=== PATIENT | female | born 1990 | race African-American/Black ===

== ENCOUNTER 2017-06-09 03:21 | Emergency (ER) | payer MEDICAID, SELFPAY ==
[2017-06-09 03:23] VITALS: BP 136/78; PULSE 90; RESP 16; TEMP 36.9; O2SAT 100; BMI 37.8
[2017-06-09] MEDS: Acetaminophen 500 MG Tablet 1000 MG PO (03:58)
[2017-06-09 04:08] LABS: Bacteria 0 SEEN /hpf (None Seen); Mucous, Urine 0 SEEN /hpf (<or=2+); Red Blood Cells-Urine 0 SEEN /hpf (0-5)
[2017-06-09 04:11] LABS: Color, Urine Yellow (Yellow); Glucose, Dipstick Normal (Normal); Ketone-Dipstick Negative (Negative); Leukocyte Esterase-Dipstick 500 /ul (Negative); Nitrite-Dipstick Negative (Negative); Occult Blood-Urine 25 /ul (Negative); Protein-Dipstick Negative (Negative); Urine Bilirubin Dipstick Negative (Negative); Urine Clarity Sl. Cloudy (Clear); Urine Urobilinogen Normal (Normal)
[2017-06-09 04:18] LABS: Squamous Epithelial Cells - UA 0-5 SEEN /hpf (5-10); White Blood Cells 50-100 SEEN /hpf (0-5)
--- NOTE | 2017-06-09 05:00 | ED.DCSUM_ITS ---
- ER Visit Summary Date of Service: 06/09/17 Chief Complaint: Chills, back pain History of Present Illness: The patient is a 27 F 17 week gestation and presents sudden chills this afternoon. Nontraumatic cramping of her right flank region. Denies urinary symptoms. Mild myalgias. Transient nausea. No vomiting or diarrhea. Past med history of heart murmur per patient. She is followed by [facility]. Currently on prenatals. Denies alcohol, tobacco, or illicit drug use. Physical Examination: General: Alert and oriented ?3, no acute distress HEENT: Normocephalic, atraumatic. Moist mucosa membranes Neck: supple, nontender. Cardiovascular: Regular rate and rhythm, no murmurs Respiratory: Normal breath sounds, symmetric, no distress Abdomen: Soft, nontender, nondistended Back: No CVA tenderness, no rash. Extremities: Nontender, no edema, pulses intact ?4 Neuro: no focal neurological deficits. Test Results: UA: Leukocytes 500, WBCs 5200. Urine culture pending. Emergency Department Course and Treatment: Patient nontoxic. She is given Tylenol for symptoms of chills. heart tone 140. With her back pain I did obtain a UA noted signs of infection. Urine culture sent. Discussed with the patient with her and back pain with her UTI, discussed attaining labs for further evaluation give her a dose of IV antibiotics. However after nursing tried accessing IV with 2 separate nurse, patient became agitated, she did not want any further testing. Discussed the patient could be a possibility of pyelonephritis due to her flank pain. She is nontoxic currently. Risk were discussed with the patient. She understands. She states she will call her physician this morning. Discussed I did send for culture she will be started on Macrobid along with a 10 day course. She will see her physician For reevaluation later today. She return if any worsening symptoms. All questions were answered. Treatment Plan: [] Disposition: Discharge Impression: 1. UTI and 2. Flank pain 3. Second trimester This note was generated with [employer] software. It may contain incorrect words, spelling, and punctuation that were not noted in review of the chart prior to signing ED Disposition - Plan for ED Patient: Disposition: Home or Assisted Living Chief Complaint: General Illness Diagnosis: UTI in , Right flank pain Instructions: ED Kidney Infec Female Prescriptions: Nitrofurantoin Monohyd/M-Cryst [Macrobid 100 mg Capsule] 100 mg PO BID #20 capsule Referrals: Care Physician,No Primary [Primary Care Provider] - Additional Instructions: Urine infection on labs. Flank pain. Urine culture sent and is pending. We insisted that that you received lab work for further evaluation for possible kidney infection. He will be treated for concerns or kidney infection. See your doctor today. Return if any worsening symptoms. Take antibiotics as prescribed.
[2017-06-09] MEDS: Nitrofurantoin Macrocrystals 100 MG Capsule PO (05:09)
[2017-06-09 05:11] VITALS: BP 123/77; PULSE 72; RESP 15; O2SAT 98
== END 2017-06-09 05:12 | disposition home or self-care (01) ==
PROVIDERS: Emergency Provider Emergency Medicine
DX: O23.42 Unspecified infection of urinary tract in pregnancy, second trimester (principal); O26.892 Other specified pregnancy related conditions, second trimester; R10.9 Unspecified abdominal pain; Z3A.17 17 weeks gestation of pregnancy
CPT/HCPCS: 81001; 87086; 87088; 87186; 99283

== ENCOUNTER 2017-09-18 12:01 | Emergency (ER) | payer MEDICAID, SELFPAY ==
[2017-09-18 12:03] VITALS: BP 114/68; PULSE 91; RESP 16; TEMP 36.9; O2SAT 98; BMI 32.8
--- NOTE | 2017-09-18 12:25 | ED.RN ---
CALLED [facility]SELING CENTER TO HAVE THEM COME SEE PATIENT. OSTEOPATHIC PHYSICIAN STATED SHE WOULD LET THEM KNOW.
--- NOTE | 2017-09-18 12:27 | ED.DCSUM_ITS ---
- ER Visit Summary Date of Service: 09/18/17 Chief Complaint: Depressed and suicidal History of Present Illness: The patient is a 27 F 3 P2 Ab0 currently 7-1/2 months due November 15. Patient is currently under the care of Dr. Kita Chatman of [facility]. She also sees a counseling center. She is a history of depression. She states she has been depressed more recently the last 2 days she has had suicidal thoughts. She states she has not acted on them. Around 2 years ago she needs to be admitted due to depression. Physical Examination: Well-appearing young female. Vital signs are stable and afebrile. She does not look septic or toxic. She is in no acute distress. I do not smell alcohol in order I see any signs of a toxidrome. H EENT exam unremarkable neck nontender lungs clear to auscultation bilaterally. Heart regular rate and rhythm no murmur. Abdomen is soft nondistended normal bowel sounds. She does have a gravid nontender uterus consistent with her dates. She is moving all 4 extremities. I do not see any track jane. I do not see any wounds. There are no scars. Upper and lower extremities neurovascular intact with normal range of motion. Back is nontender. Neurologically she is awake alert without focal motor deficits. Test Results: ED mental health screening labs. Emergency Department Course and Treatment: Patient will undergo ED mental health evaluation and a crisis evaluation for final disposition. Treatment Plan: [] Disposition: [] Impression: Acute on chronic depression Suicidal ideation at 7 a half months This note was generated with [employer] dictation software. It may contain incorrect words, spelling, and punctuation that were not noted in review of the chart prior to signing ED Disposition - Plan for ED Patient: Chief Complaint: Suicidal Referrals: Care Physician,No Primary [Primary Care Provider] -
--- NOTE | 2017-09-18 12:29 | ED.RN ---
LATOYA CHENG CALLED STATING HE WAS IN THE HOSPITAL ON [facility] AND HAS NOT EVEN BEGAN SEEING THE PT. HE STATED HE DOES NOT KNOW HOW LONG IT WILL BE UNTIL HE WILL BE DOWN HERE.
[2017-09-18 12:47] LABS: Absolute Lymphocyte Count 2.18 X10^3/ul (0.83-4.51); Absolute Neutrophil Count 9.7 X10^3/uL (2.0-7.7); Basophil# 0.02 X10^3/uL; Basophil% 0.2 % (0-1); Eosinophil# 0.11 X10^3/uL; Eosinophils% 0.9 % (0-5); Hematocrit 38.3 % (37-47); Hemoglobin 12.8 g/dl (12.0-15.0); Lymphocyte # 2.18 X10^3/ul (4.0); Mean Corp Hgb Conc 33.4 g/gl (32-36); Mean Corpuscular Volume 89.9 fL (81-99); Mean Platelet Vol. 10.4 fl (6.2-12.0); Monocyte# 0.83 X10^3/uL; Monocyte% 6.5 % (0-10); Neutrophil # 9.69 X10^3/uL (2.7-7.7); Neutrophil % 75.2 % (47-70); Platelet Count 258 K/mm3 (150-450); RBC Distribution Width CV 13.4 % (11.6-14.6); RBC Distribution Width SD 43.8 fl (35.1-43.9); Red Blood Count 4.26 M/mm3 (4.2-5.4); White Blood Count 12.9 K/mm3 (4.4-11.0)
[2017-09-18 12:49] LABS: POSITIVE COUNT NO; POSITIVE DIFFERENTIAL NO; POSITIVE MORPHOLOGY NO
[2017-09-18 13:03] LABS: Amphetamine Urine VISTA NEGATIVE (<1000 ng/mL); Barbiturate Urine VISTA NEGATIVE (< 200 ng/mL); Benzodiazepine Urine VISTA NEGATIVE (< 200 ng/mL); Cocaine Urine VISTA NEGATIVE (< 300 ng/mL); Ecstacy Urine VISTA NEGATIVE (< 500 ng/mL); Methadone Urine VISTA NEGATIVE (< 300 ng/mL); PCP Urine VISTA NEGATIVE (< 25 ng/mL); THC Urine VISTA POSITIVE (< 50 ng/mL); Vista UDS pH Range 6
[2017-09-18 13:03] LABS: Anion Gap 8 (5-15); BUN 3 mg/dL (7-18); BUN/Creat Ratio 5.4 RATIO (10-20); Calcium,Total 8.7 mg/dL (8.5-10.1); Chloride 107 mmol/L (98-107); Creatinine, Serum 0.56 mg/dL (0.55-1.02); EST Glomerular Filtration Rate 136 mL/min (>60); Est Glom Filt Rate - Afr Amer 165 mL/min (>60); Estimated Creatinine Clearance 133.38 ml/min; Glucose 64 mg/dL (74-106); Potassium 3.6 mmol/L (3.5-5.1); Sodium Level 137 mmol/L (136-145)
[2017-09-18] MEDS: Acetaminophen 500 MG Tablet 1000 MG PO (15:05)
[2017-09-18 15:06] VITALS: RESP 17
--- NOTE | 2017-09-18 15:13 | NURSING ---
LATOYA, CRISIS, HERE FOR PATIENT
[2017-09-18 16:52] VITALS: BP 109/65; PULSE 85; RESP 18; O2SAT 99
[2017-09-18 18:27] VITALS: BP 118/70; PULSE 84; O2SAT 98
[2017-09-18 18:53] VITALS: BP 118/70; PULSE 84; RESP 18; O2SAT 96
== END 2017-09-18 18:59 | disposition short-term general hospital (02) ==
LOC: ED 14:02
PROVIDERS: Emergency Provider Emergency Medicine
DX: O99.340 Other mental disorders complicating pregnancy, unspecified trimester (principal); F32.9 Major depressive disorder, single episode, unspecified; R45.851 Suicidal ideations; O99.330 Smoking (tobacco) complicating pregnancy, unspecified trimester; F17.200 Nicotine dependence, unspecified, uncomplicated; Z3A.00 Weeks of gestation of pregnancy not specified
CPT/HCPCS: 36415; 80048; 80307; 80320; 85025; 99284; G0480

== ENCOUNTER → 2017-11-09 14:59 | Outpatient (CLI) | payer MEDICAID, SELFPAY ==
[2017-11-09 19:09] LABS: Group B Strep DNA By PCR POSITIVE (Negative); Probe Check PASS
[2017-11-13 07:06] LABS: HSV 1 IgG < 0.91
== END ==
PROVIDERS: Visit Provider Nurse Practitioner Women's Health
DX: O09.93 Supervision of high risk pregnancy, unspecified, third trimester (principal); O98.513 Other viral diseases complicating pregnancy, third trimester; B00.9 Herpesviral infection, unspecified; Z3A.00 Weeks of gestation of pregnancy not specified
CPT/HCPCS: 36415; 86695; 86696; 87653

== ENCOUNTER → 2017-11-10 11:06 | Outpatient (CLI) | payer MEDICAID, SELFPAY | PROVIDERS: Visit Provider Obstetrics & Gynecology | DX: O36.5990 Maternal care for other known or suspected poor fetal growth, unspecified trimester, not applicable or unspecified (principal); Z3A.00 Weeks of gestation of pregnancy not specified | CPT/HCPCS: 76816 ==

== ENCOUNTER 2017-11-13 07:00 | Outpatient (CLI) | payer MEDICAID, SELFPAY ==
[2017-11-13 08:20] VITALS: BMI 35.1
--- NOTE | 2017-11-13 13:35 | OB.TRI.NOTE ---
- Problem List (1) False labor Status: Acute History of Present Illness Date of Service: 11/13/17 Was patient seen by the physician?: Yes Reason For Visit: R/O LABOR Date of Service: 11/13/17 History of Present Illness: co ctx. 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 discussed at length risk of herpes lesions at time of labor and would recommend cs if active. her last outbreak was 6 weeks ago and her bloodwork is positive for an old infection, negative for acute. discussed low risk for herpes transmission then at this time, particiularly if she goes on antivirals until delivery. recommend continuing antivirals and then fu in office
== END 2017-11-13 13:03 | disposition home or self-care (01) ==
LOC: WPOUT 07:36 → WP 07:37
PROVIDERS: Visit Provider Obstetrics & Gynecology
DX: O47.9 False labor, unspecified (principal); O98.519 Other viral diseases complicating pregnancy, unspecified trimester; B00.9 Herpesviral infection, unspecified; O99.340 Other mental disorders complicating pregnancy, unspecified trimester; F43.10 Post-traumatic stress disorder, unspecified; Z3A.00 Weeks of gestation of pregnancy not specified
CPT/HCPCS: 59050; 99218; G0378

== ENCOUNTER 2017-11-16 21:30 | Inpatient (IN) | payer MEDICAID, SELFPAY ==
[2017-11-16 22:18] VITALS: BMI 35.7
[2017-11-16] MEDS: Lactated Ringers 1,000 ML 50 ML IV (22:30)
[2017-11-16 22:35] LABS: Hematocrit 36.3 % (37-47); Hemoglobin 12.1 g/dl (12.0-15.0); Mean Corp Hgb Conc 33.3 g/gl (32-36); Mean Corpuscular Hgb 30.2 pg (27.0-32.0); Mean Corpuscular Volume 90.5 fL (81-99); Mean Platelet Vol. 11.3 fl (6.2-12.0); Platelet Count 258 K/mm3 (150-450); RBC Distribution Width CV 14.1 % (11.6-14.6); RBC Distribution Width SD 46.3 fl (35.1-43.9); Red Blood Count 4.01 M/mm3 (4.2-5.4); White Blood Count 14.5 K/mm3 (4.4-11.0)
[2017-11-16 22:39] LABS: Scan Indicated on CBC? Y/N NO
[2017-11-17 00:19] LABS: Amphetamine Urine VISTA NEGATIVE (<1000 ng/mL); Barbiturate Urine VISTA NEGATIVE (< 200 ng/mL); Benzodiazepine Urine VISTA NEGATIVE (< 200 ng/mL); Cocaine Urine VISTA NEGATIVE (< 300 ng/mL); Ecstacy Urine VISTA NEGATIVE (< 500 ng/mL); Methadone Urine VISTA NEGATIVE (< 300 ng/mL); PCP Urine VISTA NEGATIVE (< 25 ng/mL); THC Urine VISTA POSITIVE (< 50 ng/mL); Vista UDS pH Range 6
--- NOTE | 2017-11-17 01:10 | PCM.HP.OB ---
- Problem List (1) Active labor at term Status: Acute (2) Positive GBS test Status: Acute (3) Supervision of high-risk Status: Acute Comment: KAREN [place]. EDC 11/15/18 Grav 3/2 Girl (4) HSV-2 (herpes simplex virus 2) infection Status: Chronic History Date of Admission: 11/16/17 Final FABY: 11/15/17 Gestational age: 40 Weeks and 2 Days History of this : This is a 27 year-old, at 40 weeks gestational age presents IAL 5 cm dilated. she denies any active herpes lesions and denies any prodromal symptoms. she is currently on valtrex. she denies any LOF and admits good fm, no vb. she received care by [facility] in the beginning of her and then transferred care to [facility]. she also received several appointments for care in [place] due to her working down there for a while. she had a herpes outbreak 6 weeks ago and bloodwork showed that she has a history of HSV infections. 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) B00.9 PTSD (post-traumatic stress disorder) (Acute) F43.10 Has medical marijuana card Surgical History: Surgical History (Last Updated 11/09/17 @ 14:14 by Patrizia Wilkinson) Hx of tooth extraction K08.409 Allergies No Known Allergies Allergy (Verified 11/16/17 22:39) Home Medications: Home Medications Pnv No.122/Iron/Folic Acid [ Multi Tablet] 1 ea PO DAILY 09/18/17 Citalopram [Celexa] 10 mg PO DAILY 11/16/17 Valacyclovir HCl [Valtrex] 1,000 mg PO BID 11/16/17 Smoking Status: Light Smoker (<10/day) Alcohol: None Substance Use Type: Marijuana Number of Fetus(es): 1 Heart Tracin-130 moderate variability reactive no decels TOCO Analysis: q 5-8 History Past Pregnancies: Past Pregnancies Delivery Date Name GA/Weeks Outcome Route Weight Infant Gender Labor Length Anesthesia Delivery Location Provider FOB Labs: Mom's Problem List Problem Status Onset Code Active labor at term Acute Mom's Labs & Results 08/11/16/17 11/16/17 22:10 22:10 23:35 WBC 14.5 H RBC 4.01 L Hgb 12.1 Hct 36.3 L MCV 90.5 MCH 30.2 MCHC 33.3 RDW 14.1 RDW Differential 46.3 H Plt Count 258 MPV 11.3 Urine Opiates Screen NEGATIVE Urine Methadone Screen NEGATIVE Ur Barbiturates Screen NEGATIVE Ur Phencyclidine Scrn NEGATIVE Ur Amphetamines Screen NEGATIVE U Methamphetamin-MDMA NEGATIVE U Benzodiazepines Scrn NEGATIVE Urine Cocaine Screen NEGATIVE U Cannabinoids Screen POSITIVE H Ur Drug Screen Comment Blood Type B POSITIVE Antibody Screen NEGATIVE Course Did the patient receive Yes care? Labs Blood Type: AB RH: POSITIVE RPR/VDRL/Syphilis Nonreactive Rubella status Immune HbSAg Negative Date Done: 05/01/17 Chlamydia Negative Gonorrhea Negative HIV/AIDS Non-Reactive Group B Strep: Positive Current Obstetrical History Gestational Diabetes No Incompetent Cervix No Infertility No IUGR No Macrosomia No Hypertension/Pre-eclampsia No Placenta Previa/Abruption No PTL/PROM No Uterine anomaly No Oligohydramnios No Polyhydramnios No Multiple gestation No Past Medical History Asthma No Diabetes No Hypertension No Heart disease No Mitral valve prolapse No Neurologic/Seizure disorder/ No Migraines Kidney disease No Liver disease No Varicosities No Clotting disorders/Hx of DVT No Thyroid Dysfunction No Other medical diseases Yes: heart murmur Psychiatric disorders Yes: depression Major trauma No Abnormal PAP smear No Sleep apnea No Mammogram in the last 2 years No Social History Marital Status: SINGLE Alleged father Broderick Nuno Smoking Yes: trying to quit; last smoked 3 weeks ago Smoking Status Light Smoker (<10/day) Substance Use Type Marijuana What date/time did you last used beginning october use any of the above? Expected Delivery Method: Spontaneous Vaginal Review of Systems Constitutional: Denies: Fever, Malaise Eyes: Denies: Blurred vision, Vision Change HEENT: Denies: Head Aches, Visual Changes Cardiovascular: Denies: Chest Pain, Palpitations Respiratory: Denies: Cough, Shortness of Breath, Wheezing Gastrointestinal: Denies: Abdominal Pain, Diarrhea, Nausea, Vomiting Genitourinary: Denies: Dysuria, Hematuria Musculoskeletal: Denies: Joint Pain, Muscle pain Skin: Denies: Lesions, Rash Neurological: Denies: Blurred vision, Focal weakness, Headaches Psychiatric: Denies: Anxiety, Depression Endocrine: Denies: Heat/ Cold Intolerance Hematologic/ Lymphatic: Denies: Easy Bruising, Easy Bleeding Physical Exam General: Alert, Cooperative, No apparent distress HEENT: Atraumatic, Normocephalic. Negative for: Thyromegaly, Lymphadenopathy Cardiovascular: Regular rate Lungs: Normal air movement Abdomen: Soft, Non Tender, Gravid Neurological: Deep Tendon Reflexes 2+/4 and Symmetrical, Neuro grossly intact. Negative for: Clonus BODY BUILDER: Normal external genitalia. Negative for: Vulvar lesions Estimated gestational size: Appropriate for gestational size Presentation: Cephalic Assessment/Plan All Active Problems (Last Reviewed 11/09/17 @ 14:13 by Patrizia Wilkinson) False labor (Acute) Active labor at term (Acute) Positive GBS test (Acute) Supervision of high-risk (Acute) PTSD (post-traumatic stress disorder) (Acute) This is a 27 year-old, , at 40 weeks gestational age presents IAL Patient presents IAL, plan expectant management for , pitocin/AROM PRN if needed. Pain management: plans minimal intervention GBS positive plan PCN. Management of any complications: marijuana use- tox screen sent and positive. social service technician consult I have reviewed the COUNTS INCLUDE 234 BEDS AT THE [facility] and made any clinically relevant updates.
[2017-11-17] MEDS: Lactated Ringers 1,000 ML 50 ML IV (01:30)
[2017-11-17] MEDS: Oxytocin 30 units/NS 500 ml 30 UNITS/500 ML IV.SOLN IV (04:22)
[2017-11-17] MEDS: fentaNYL-bupivacaine (epidural) 100 ML BAG EPIDURAL (05:59)
[2017-11-17] MEDS: Oxytocin 30 units/NS 500 ml 30 UNITS/500 ML IV.SOLN 334 UNITS IV (06:21)
--- NOTE | 2017-11-17 06:36 | PCM.OB.VAG ---
- Problem List (1) Active labor at term Status: Acute (2) Positive GBS test Status: Acute (3) Supervision of high-risk Status: Acute Comment: K[facility] [place]. EDC 11/15/18 Grav 3/2 Girl (4) HSV-2 (herpes simplex virus 2) infection Status: Chronic Vaginal Delivery Maternal Presentation: Active Labor 27-year-old at 40 weeks 1 day presents in active labor. Patient was examined due to a history of genital herpes and no active lesions were noted. Patient was on Valtrex the time of delivery. Amniotic Membrane Rupture Type: Artificial Amniotic Fluid Description: Clear Final FABY: 11/15/17 Gestational age: 40 Weeks and 2 Days Date of Procedure: 11/17/17 Pre-Operative Diagnosis: ial Post-Operative Diagnosis: ial Surgery/ Procedure Performed: Spontaneous Vaginal Delivery Type of Anesthesia: None Description of Procedure: Patient began pushing and delivered the head in the KARTIK presentation. The head was delivered atraumatically. The anterior and posterior shoulders delivered without complication followed by the rest of the and the was placed on the maternal abdomen. Delayed cord clamping was employed for approximately 60 seconds. Cord was clamped and cut and gentle traction was applied to the cord and the placenta delivered spontaneously immediately following it was noted to be intact with three-vessel cord. The perineum and vagina were inspected and noted to have no laceration. EBL was 100 cc. Patient and infant tolerated delivery well. Presentation: KARTIK Placental Delivery Description: Spontaneous Placenta Disposition: [facility] Cord Entanglement: None Estimated Blood Loss: 100 A gender: Female (1 minute): 8 (5 minute): 9 Episiotomy Description: None Laceration: None Medications given after delivery: IV Pitocin Complications: None
[2017-11-17] MEDS: Oxytocin 30 units/NS 500 ml 30 UNITS/500 ML IV.SOLN 167 UNITS IV (06:51)
[2017-11-17] MEDS: Citalopram 10 MG Tablet PO (11:34)
[2017-11-17] MEDS: Prenatal Vits Tablet 1 TABLET PO (11:37)
[2017-11-17 12:00] VITALS: BP 102/64; PULSE 77; RESP 18; TEMP 36.6
[2017-11-17] MEDS: Naproxen 250 MG Tablet PO (14:25)
[2017-11-17 15:30] VITALS: BP 116/56; PULSE 77; RESP 16; TEMP 36.7; O2SAT 100
[2017-11-17] MEDS: Acetaminophen 500 MG Tablet 1000 MG PO (17:02)
[2017-11-17 20:20] VITALS: BP 108/60; PULSE 69; RESP 16; TEMP 36.7; O2SAT 98
[2017-11-17 23:50] VITALS: BP 108/63; PULSE 79; RESP 16; TEMP 36.8; O2SAT 94
[2017-11-18] MEDS: Acetaminophen 500 MG Tablet 1000 MG PO (02:15)
[2017-11-18 04:45] VITALS: BP 92/49; PULSE 65; RESP 16; TEMP 36.6; O2SAT 96
[2017-11-18] MEDS: oxyCODONE 5 MG Tablet PO ×2 (07:42→13:29)
--- NOTE | 2017-11-18 07:45 | PCM.PN.OB ---
Patient Problems: Active and Suspected Problems (Last Reviewed 11/09/17 @ 14:13 by Patrizia Wilkinson) Active labor at term (Acute) Subjective: No CP, SOB. Pain controlled. - Physical Exam General: Alert, Oriented x3 Abdomen: Soft, Non Tender, - - FF below U Vital Signs Temp Pulse Resp BP Pulse Ox 97.9 F 65 16 92/49 L 96 11/18/17 04:45 11/18/17 04:45 11/18/17 04:45 11/18/17 04:45 11/18/17 04:45 Oxygen Delivery Method Room Air Weight: 202 lb Body Mass Index (BMI) 35.7 Intake and Output for Last 24 Hours 11/16/17 11/17/17 11/18/17 23:59 23:59 23:59 Output Total 500 / 500 Balance -500 / -500 Medical Necessity - Tobacco Use Smoking Status: Light Smoker (<10/day) Assessment/Plan All Active Problems (Last Reviewed 11/09/17 @ 14:13 by Patrizia Wilkinson) False labor (Acute) Active labor at term (Acute) Positive GBS test (Acute) Supervision of high-risk (Acute) PTSD (post-traumatic stress disorder) (Acute) PPD #1: Doing well. . Pain controlled with OTC ibuprofen. Routine care.
[2017-11-18 07:46] VITALS: BP 103/46; PULSE 60; RESP 16; TEMP 36.8; O2SAT 99
[2017-11-18] MEDS: Prenatal Vits Tablet 1 TABLET PO (10:08)
[2017-11-18] MEDS: Citalopram 10 MG Tablet PO (10:08)
--- NOTE | 2017-11-18 14:24 | NURSING ---
Mother encouraged to feed baby 8-12 times per day to encourage weight gain. Verbalized understanding.
[2017-11-18 14:30] VITALS: BP 101/48; PULSE 68; RESP 16; TEMP 36.8; O2SAT 100
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
--- NOTE | 2017-11-18 15:08 | CASEMGMT ---
Social Work Note Labor and Delivery Unit Called [facility] ([facility]) and spoke with Shantal Julio in the intake department, . Referral given due to substance exposed infant in utero, mother of baby (MOB) repeated drug screens this for marijuana. Reported MOB that MOB endorsed having a medical marijuana card at one point. Reported brief maternal and history including other risk factors of maternal mental health with inpatient mental health hospitalization this related to suicidal ideation with plan. Reported other stressors of relationship issues, moving, and possible history of financial problems though not endorsed currently. Reported strengths present as MOB seeming to have insight, connection with mental health services, stated intent not to use marijuana at this juncture and look at other coping skills, and MOB's report of having access to a support system. No other services requested or indicated, other than monitoring for meconium drug screen results. See previous documentation this date for details of social work intervention. MOB and baby to be discharged home later today. -WILMER Acosta, CRIMP SETTER
--- NOTE | 2017-11-18 15:19 | PCM.DCVAG ---
Additional Instructions: If you experience any of the following, contact your healthcare provider. Bleeding that soaks a pad every hour for 2 hours Fever 100.4 or higher Unrelieved incision or abdominal pain Swelling, redness, discharge or bleeding from your incision or episiotomy site Your incision begins to separate Problems urinating (including inability to urinate or burning while urinating). Visual changes Severe headache Flu-like symptoms Pain or redness in one of both of your breasts Pain, warmth, tenderness or swelling in your legs, especially the calf area Frequent nausea and vomiting Symptoms of depression or anxiety If you experience any of the following, call 911 or go to the nearest Emergency Room. Chest pain Problems breathing Seizure activity Partial or complete paralysis of a body part, slurred speech, weakness or drooping of the face, or a sudden inability to walk or hold your balance Allergies/Adverse Reactions: Allergies No Known Allergies Allergy (Verified 11/16/17 22:39) Medications to take at Discharge Pnv No.122/Iron/Folic Acid [ Multi Tablet] 1 ea PO DAILY 09/18/17 Citalopram [Celexa] 10 mg PO DAILY 11/16/17 Valacyclovir HCl [Valtrex] 1,000 mg PO BID 11/16/17 Naproxen 500 mg PO BID PRN #60 tab 11/18/17 The following prescriptions were given: Naproxen 500 mg PO BID PRN #60 tab PRN Reason: Pain Primary Care Physician: Care Physician,No Primary [Primary Care Provider] - Test Results: Test results from this visit will be discussed in further detail at your follow-up appointment, if applicable.
== END 2017-11-18 16:55 | disposition home or self-care (01) | DRG 372 ==
PROVIDERS: Admitting Provider Obstetrics & Gynecology; Visit Provider Obstetrics & Gynecology
DX: O48.0 Post-term pregnancy (principal); O98.313 Other infections with a predominantly sexual mode of transmission complicating pregnancy, third trimester; O99.824 Streptococcus B carrier state complicating childbirth; Z37.0 Single live birth; Z3A.40 40 weeks gestation of pregnancy; A60.00 Herpesviral infection of urogenital system, unspecified; Z79.899 Other long term (current) drug therapy; O99.344 Other mental disorders complicating childbirth; F43.10 Post-traumatic stress disorder, unspecified; F17.200 Nicotine dependence, unspecified, uncomplicated; F12.90 Cannabis use, unspecified, uncomplicated; O99.334 Smoking (tobacco) complicating childbirth
CPT/HCPCS: 59050; 80307; 85027; 86850; 86900; 99218; J7120; G0378

== ENCOUNTER → 2018-02-01 16:56 | Outpatient (CLI) | payer MEDICAID, SELFPAY ==
[2018-02-04 13:21] LABS: HPV Reflexed? NOT INDICATED
== END ==
PROVIDERS: Referring Provider Nurse Practitioner Women's Health; Visit Provider Nurse Practitioner Women's Health
DX: Z12.4 Encounter for screening for malignant neoplasm of cervix (principal)
CPT/HCPCS: 87624; 88175; G0145

== ENCOUNTER 2018-11-21 08:36 | Emergency (ER) | payer SELFPAY ==
[2018-11-21 08:37] VITALS: BP 111/69; PULSE 79; RESP 14; TEMP 36.1; O2SAT 99; BMI 31.4
--- NOTE | 2018-11-21 08:39 | EKG12_ITS ---
Test Reason : CP X 3 DAYS Blood Pressure : / mmHG Vent. Rate : 054 BPM Atrial Rate : 054 BPM P-R Int : 166 ms QRS Dur : 084 ms QT Int : 408 ms P-R-T Axes : 039 049 050 degrees QTc Int : 386 ms Sinus bradycardia Otherwise normal ECG Confirmed by PHOENIX NAVARRO, MADDIE ([id number]), image editor KIMBERLY CONNOLLY ([id number]) on 11/24/2018 11:45:16 AM Referred By: SHAHZAD Confirmed By:MADDIE GARIBAY MD
--- NOTE | 2018-11-21 08:39 | RAD_ITS ---
STUDY: X-RAY CHEST REASON FOR EXAM: Female, 28 years old. Chest pain. TECHNIQUE: Single AP portable view of the chest. COMPARISON: 16 October 2016 FINDINGS: The lungs are clear and expanded. There is no demonstrated pleural abnormality. Normal size heart. Normal mediastinum and sarah. Normal visualized pulmonary arteries. Normal visualized aortic arch and descending thoracic aorta. Normal visualized thoracic spine. Normal visualized ribs, clavicles, and shoulders. There is no demonstrated abnormality of the visualized soft tissue structures of the upper abdomen. RAD/Chest 1 View (Portable) IMPRESSION: No evidence of acute cardiopulmonary process. Electronically Signed: Derick Patel DO at 9:21 EDT , Service support ,
--- NOTE | 2018-11-21 08:45 | NURSING ---
NO OLD EKGS
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
[2018-11-21] MEDS: 0.9% Normal Saline 1,000 ML 150 ML IV (09:05)
[2018-11-21] MEDS: Aspirin 81 MG TAB.CHEW 162 MG PO (09:07)
[2018-11-21 09:12] VITALS: BP 110/71; PULSE 61; RESP 25; O2SAT 98
[2018-11-21 09:20] LABS: Absolute Lymphocyte Count 2.95 X10^3/uL (0.83-4.51); Absolute Neutrophil Count 5.5 X10^3/uL (2.0-7.7); Basophil# 0.05 X10^3/uL; Basophil% 0.5 % (0-1); Eosinophil# 0.23 X10^3/uL; Eosinophils% 2.5 % (0-5); Hematocrit 45.9 % (37-47); Hemoglobin 15.2 g/dL (12.0-15.0); Lymphocyte # 2.95 X10^3/ul (4.0); Lymphocyte % 31.5 % (19-41); Mean Corp Hgb Conc 33.1 g/dL (32-36); Mean Corpuscular Hgb 30.5 pg (27.0-32.0); Mean Corpuscular Volume 92.2 fL (81-99); Mean Platelet Vol. 11.3 fl (6.2-12.0); Monocyte# 0.64 X10^3/uL; Monocyte% 6.8 % (0-10); NRBC Flagged by Analyzer 0 % (0-5); Neutrophil # 5.48 X10^3/uL (2.7-7.7); Neutrophil % 58.5 % (47-70); Platelet Count 352 K/mm3 (150-450); RBC Distribution Width CV 13.1 % (11.6-14.6); RBC Distribution Width SD 44.5 fl (35.1-43.9); Red Blood Count 4.98 M/mm3 (4.2-5.4); White Blood Count 9.4 K/mm3 (4.4-11.0)
[2018-11-21 09:36] LABS: Anion Gap 7 (5-15); BUN 11 mg/dL (7-18); BUN/Creat Ratio 12.5 RATIO (10-20); Calcium,Total 8.6 mg/dL (8.5-10.1); Chloride 111 mmol/L (98-107); Creatinine, Serum 0.88 mg/dL (0.55-1.02); EST Glomerular Filtration Rate 80 mL/min (>60); Est Glom Filt Rate - Afr Amer 96 mL/min (>60); Estimated Creatinine Clearance 77.33 ml/min; Glucose 88 mg/dL (74-106); Potassium 4.1 mmol/L (3.5-5.1); Sodium Level 141 mmol/L (136-145)
[2018-11-21 09:54] VITALS: BP 127/74; PULSE 57; RESP 16; O2SAT 100
== END 2018-11-21 10:17 | disposition home or self-care (01) ==
PROVIDERS: Emergency Provider Emergency Medicine
DX: R07.89 Other chest pain (principal); F17.200 Nicotine dependence, unspecified, uncomplicated
CPT/HCPCS: 71045; 80048; 84484; 85025; 93005; 96360; 99284; J7030; A4216

== ENCOUNTER → 2020-11-13 | Outpatient (CLI) | payer MEDICAID, SELFPAY ==
[2020-11-13 13:12] VITALS: BMI 31.4
[2020-11-16 10:44] LABS: Chlamydia By Nucleic Acid AMP Negative (Negative)
[2020-11-16 10:54] LABS: Gonococcus By Nucleic Acid AMP Negative (Negative)
[2020-11-17 15:32] LABS: HPV APTIMA, High Risk Negative (Negative)
== END | disposition home or self-care (01) ==
LOC: LABSPEC 18:03
PROVIDERS: Referring Provider Nurse Practitioner Women's Health; Visit Provider Nurse Practitioner Women's Health
DX: R10.2 Pelvic and perineal pain (principal); Z12.4 Encounter for screening for malignant neoplasm of cervix; Z11.3 Encounter for screening for infections with a predominantly sexual mode of transmission
CPT/HCPCS: 87070; 87077; 87205; 87491; 87591; 87624; 88175; G0145

== ENCOUNTER → 2021-03-21 | Outpatient (CLI) | payer MEDICAID, SELFPAY | END | disposition home or self-care (01) | LOC: LABSPEC 03-25 06:39 | PROVIDERS: Referring Provider Obstetrics & Gynecology; Visit Provider Obstetrics & Gynecology | DX: N89.8 Other specified noninflammatory disorders of vagina (principal) | CPT/HCPCS: 87070; 87205 ==

== ENCOUNTER → 2022-12-18 | Outpatient (CLI) | payer MEDICAID, SELFPAY | END | disposition home or self-care (01) | LOC: LABSPEC 13:00 | PROVIDERS: Referring Provider Advanced Practice Midwife; Visit Provider Advanced Practice Midwife | DX: N89.8 Other specified noninflammatory disorders of vagina (principal) | CPT/HCPCS: 87070; 87205 ==

== ENCOUNTER 2023-04-17 09:37 | Emergency (ER) | payer MEDICAID, SELFPAY ==
[2023-04-17] VITALS (9 sets, daily range): BP systolic 99–124; BP diastolic 66–80; PULSE 71–132; RESP 16–18; TEMP 36.3–36.7; O2SAT 97–98; BMI 37.8
--- NOTE | 2023-04-17 09:57 | EDS_ITS ---
HPI HPI - Psych History of Present Illness Chief Complaint: Mental Health Informant: patient Onset/Context/Timing Onset: Month(s) Context: Gradual Onset Timing: Continuous Worsened by: Situational factors Relieved by: Nothing Associated Symptoms Associated Symptoms - Psych: Positive for Depressed and Suicidal Thoughts; Negative for Paranoia, Visual Hallucinations or Auditory Hallucinations Specific plan (suicidal thought): Patient denies any specific plan Narrative Narrative: Patient presents with agitation and suicidal ideations that have been getting progressively worse for a while . Patient states she does not have a plan for suicide but just wants it all to end . Patient denies any visual or auditory hallucinations. Patient states she just does not know if her thoughts are real or not. Patient became agitated on my examination and then would not answer any further questions. 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 PTSD (post-traumatic stress disorder) Home Medications valacyclovir 1 gram tablet 1,000 mg PO BID PRN herpes 11/13/20 [History Last Taken Unknown] metronidazole 500 mg tablet 500 mg PO BID #14 tabs 12/22/22 [Rx Last Taken Unknown] Allergy/AdvReac Type Severity Reaction Status Date / Time No Known Allergies Allergy Verified 04/17/23 09:38 Family History Grandmother Diabetes Hypertension Surgical History Hx of tooth extraction Social History housing: condominium current occupational status: unemployed current occupation: [employer] Smoking Status: Never smoker alcohol intake: never substance use type: other details: Medical Marijuana use (not while ) caffeine: No seatbelt use: always do you feel safe at home: Yes additional social history: single Patient is unemployed ROS ROS ED Review of Systems ROS Unobtainable: due to mental condition Psychiatric Psychiatric: Reports anxiety, suicidal ideation and suicidal thoughts EXAM Physical Exam Const Vital Signs: 04/17/23 09:38 Temperature 97.4 F L Temperature Source Temporal Pulse Rate 132 H Respiratory Rate 18 Blood Pressure 99/66 Blood Pressure Mean 77 Pulse Ox 97 Positive well nourished and well developed General Appearance ED: well developed and irritable HEENT Reports moist mucous membranes Neck supple and no JVD Resp normal respiratory effort and clear to auscultation bilaterally Cardio Rate: tachycardic Rhythm: regular rhythm GI non-tender and non-distended Palpation: soft Neuro oriented x3, CN's II-XII intact bilaterally and no sensory deficits noted [place] Coma Scale: document GCS findings Spontaneous Obeys Commands Oriented 15 Sensorium / Orientation: alert Motor Exam: strength 5/5 throughout Psych Appearance: grossly normal Attitude: agitated and aggressive Activity / Motor Behavior: avoids eye contact Speech: pressured Mood & Affect: irritable, tearful and labile affect Thought Content: suicidality, No homicidality, No delusion(s) and No hallucination(s) MDM MDM MDM Narrative Medical decision making narrative: Medical screening labs will be obtained. CBC will be obtained to assess for leukocytosis and anemia. Basic metabolic profile will be obtained to assess for electrolyte abnormality and renal function. Serum hCG will be obtained to assess for . Serum alcohol level will be obtained to assess for alcohol intoxication. Urine tox screen will be obtained to assess for substance abuse. Treatment and Re-Evaluation Narrative: Patient was given a dose of Ativan here. Discharge Plan Triage Chief Complaint: Mental Health ED Provider: Eugenio Kirkpatrick Dx/Rx/DC Orders Prescriptions: No Action valacyclovir 1 gram tablet 1,000 mg PO BID PRN (Reason: herpes ) metronidazole 500 mg tablet 500 mg PO BID Qty: 14 0RF Primary Care Provider: Care Physician,No Primary Referrals: Care Physician,No Primary [Primary Care Provider] -
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
[2023-04-17 10:36] LABS: Absolute Lymphocyte Count 4.02 X10^3/uL (0.83-4.51); Absolute Neutrophil Count 8.7 X10^3/uL (2.0-7.7); Basophil# 0.07 X10^3/uL; Basophil% 0.5 % (0-1); Eosinophil# 0.06 X10^3/uL; Eosinophils% 0.4 % (0-5); Hematocrit 44.8 % (37-47); Hemoglobin 15.4 g/dL (12.0-15.0); Lymphocyte # 4.02 X10^3/ul (0.83-4.51); Lymphocyte % 29.8 % (19-41); Mean Corp Hgb Conc 34.4 g/dL (32-36); Mean Corpuscular Hgb 30.7 pg (27.0-32.0); Mean Corpuscular Volume 89.4 fL (81-99); Mean Platelet Vol. 10.9 fl (6.2-12.0); Monocyte# 0.64 X10^3/uL; Monocyte% 4.7 % (0-10); NRBC Flagged by Analyzer 0 % (0-5); Neutrophil # 8.67 X10^3/uL (2.7-7.7); Neutrophil % 64.4 % (47-70); Platelet Count 410 K/mm3 (150-450); RBC Distribution Width CV 12.6 % (11.6-14.6); RBC Distribution Width SD 41.5 fl (35.1-43.9); Red Blood Count 5.01 M/mm3 (4.2-5.4); White Blood Count 13.5 K/mm3 (4.4-11.0)
[2023-04-17 10:47] LABS: Anion Gap 8 (5-15); BUN 11 mg/dL (7-18); BUN/Creat Ratio 10.4 RATIO (10-20); Calcium,Total 9.4 mg/dL (8.5-10.1); Chloride 108 mmol/L (98-107); Creatinine, Serum 1.06 mg/dL (0.55-1.02); EST Glomerular Filtration Rate 63 mL/min (>60); Est Glom Filt Rate - Afr Amer 76 mL/min (>60); Estimated Creatinine Clearance 85.88 ml/min; Glucose 108 mg/dL (74-106); Potassium 3.5 mmol/L (3.5-5.1); Sodium Level 140 mmol/L (136-145)
[2023-04-17] MEDS: LORazepam 2 MG/ML Syringe 1 MG IM (10:48)
[2023-04-17 11:03] LABS: Internal QC Validated? YES +Cl - CLEAR BKGD; Pregnancy, Serum, hCG Quali. NEGATIVE Negative; Record Kit Lot#, Serum Preg. HCG0000667200
[2023-04-17 11:06] LABS: Alcohol, Blood (Medical)-Serum < 3.0 mg/dL
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
[2023-04-17 12:56] LABS: Amphetamine Urine VISTA NEGATIVE (<1000 ng/mL); Barbiturate Urine VISTA NEGATIVE (< 200 ng/mL); Benzodiazepine Urine VISTA NEGATIVE (< 200 ng/mL); Cocaine Urine VISTA NEGATIVE (< 300 ng/mL); Ecstacy Urine VISTA NEGATIVE (< 500 ng/mL); Methadone Urine VISTA NEGATIVE (< 300 ng/mL); PCP Urine VISTA NEGATIVE (< 25 ng/mL); THC Urine VISTA POSITIVE (< 50 ng/mL); Vista UDS pH Range 7
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
--- NOTE | 2023-04-17 16:15 | NURSING ---
[address] [facility] CALLED AND CLEARED FOR ADMITION. 1616 REPORT CALLED AND GIVEN TO OSKAR OKEEFE.
--- NOTE | 2023-04-17 16:42 | NURSING ---
CALLED [facility], ETA IS 4 HRS
--- NOTE | 2023-04-17 16:54 | NURSING ---
1630 - [facility] called and accepted pt. 1654 - Report called and given to Natividad Faria.
--- NOTE | 2023-04-17 20:36 | NURSING ---
[facility] AND CALLED AND SAID THE PATIENTS RIDE HAS BEEN PUSHED BACK 2 HOURS FROM ORIGINAL ETA OF 9PM.
--- NOTE | 2023-04-17 21:48 | NURSING ---
[facility] CALLED AND SAID THEY NEED TO PUSH TRANSPORT BACK AGAIN. NOW THE RIDE WILL NOT BE HERE UNTIL 7:30AM ON TUESDAY 04/18
[2023-04-17] MEDS: QUEtiapine 100 MG Tablet PO (23:31)
[2023-04-18 02:35] VITALS: RESP 18
[2023-04-18 04:09] VITALS: BP 110/60; PULSE 79; RESP 16
[2023-04-18 05:56] VITALS: RESP 16
[2023-04-18 07:00] VITALS: RESP 18
--- NOTE | 2023-04-18 07:37 | ED.RN ---
CALLED [facility] FOR [facility] ETA, THEY STATED THE ETA IS NOW PUSHED BACK 90 MINUTES - 2 HOURS. WE ASKED IF THEY COULD OUTSOURCE, THEY SAID THEY ARE WORKING ON IT. REQUESTED FOR A MANAGER PROCESS IMPROVEMENT NUMBER TO CALL, THEY SAID THEY WOULD LET SOMEONE KNOW TO CALL US BACK.
--- NOTE | 2023-04-18 07:53 | ED.RN ---
[facility] CALLED TO UPDATE US ON ETA, STATED THAT THEY WILL HAVE A CREW HERE AT 0930.
[2023-04-18 08:00] VITALS: RESP 20
--- NOTE | 2023-04-18 08:19 | ED.RN ---
PT ON THE PHONE WITH HER INSURANCE COMPANY REQUESTING A RIDE TO THE NEXT FACILITY AND CALLS THIS RN OVER TO VERIFY UNDERLAY STITCHER TIME. THIS RN STATES THAT WHEN THE ORAL AND MAXILLOFACIAL PATHOLOGIST CALLED [facility] AT 0731 THE EXPECTED ETA IS 90 MINUTES TO 2 HOURS. PATIENT WAS NOTIFIED OF THIS AND STATES I AM STILL SETTING UP A RIDE BECAUSE I DON'T WANT TO BE HERE ALL NIGHT AGAIN AND NO ONE IS ADVOCATING FOR ME . THIS RN STATES TO PATIENT WE ARE SORRY THAT THERE HAS BEEN A DELAY AND WE ARE ADVOCATING WE ASKED THEM TO OUT SOURCE THE TRANSPORTATION, THE HOSPITAL HAS A CONTRACT WITH [facility] AND THAT IS THE COMPANY WE HAVE TO USE . PT REQUEST RN TO THE BEDSIDE TO SPEAK WITH INSURANCE RIDE AGENT ON SPEAKER PHONE - THE AGENT STATES THAT SHE HAS SECURED TRANSPORT FOR THE PATIENT AND WANTS TO VERIFY THE PATIENT IS UP FOR DISCHARGE. THIS RN STATES THE PATIENT CAN NOT BE DISCHARGED BECAUSE SHE IS PINK SLIPPED AND NEEDS TO BE TRANSPORTED BY APPROVED PERSONNEL THAT IS WHY WE USE [facility]. THE THERAPEUTIC CONSULTANT VERIFIES THAT THE PATIENT IS ON A MEDICAL HOLD AND CAN NOT BE RELEASED, WHICH THIS RN CONFIRMED.
--- NOTE | 2023-04-18 08:43 | ED.RN ---
0830 THIS RN HEAR CONVERSATION FORM SUNDEEP PT SPEAKING ON THE PHONE WITH INSURANCE COMPANY TRYING TO ARRANGE TRANSPORT. THIS RN ENTERS PT ROOM, AND OBSERVES SARY HUYNH SPEAKING ON PT CELLPHONE TO THE INSURANCE COMPANY ADVISING THE PATIENT THAT SHE IS PINK SLIPPED AN UNABLE TO ARRANGE HER OWN TRANSPORT. PHONE CALLS ENDS, THIS RN INTRODUCES SELF AND ROLE AND ASKS IF PT HAS ANY QUESTIONS. PT REPORTS, I AM JUST WONDERING WHY I HAVE TO BE HERE, I CAME IN VOLUNTARILY AND I AM WAITING ON A RIDE SO I JUST FIGURED I COULD GET ONE MYSELF. I DON'T WANT TO BE HERE UNTIL [phone]. THIS RN EDUCATIONS HOSPITAL POLICY AND PROCEDURE IN REGARDS TO PINK SLIP AND HOW TRANSPORT IS ARRANGED. PT INFORMED THAT THE AMBULANCE COMPANY HAD A DELAY AND THAT IS WHY THE RIDE IS TAKING LONGER THAN INITIALLY EXPECTED. PT VERBALIZES UNDERSTANDING AND STATES, OK, WELL NO ONE IS COMMUNICATING WITH ME. I JUST ASSUMED IT WAS MEDICAL RACISM, NO BODY BE COMMUNICATING WITH ME ABOUT WHAT IS HAPPENING. I CAME IN WITH POLICE BECAUSE THE WEATHER WAS BAD, SO I THOUGHT I WAS HERE VOLUNTARILY, NO ONE ASKED ME IF I WANTED TO BE PINK SLIPPED. THIS RN LEAVE PT ROOM TO LOOK THROUGH PT CHART FOR MORE SPECIFIC DETAILS TO HER QUESTIONS ABOUT THE PINK SLIPPED. THIS RN RETURNS TO ROOM AFTER REVIEWING CHART FOR SPECIFIC DETAILS. INFORMS PT THAT THE PHYSICIAN HAD PINK SLIPPED HER, AND THEN COLLABORATED WITH SOCIAL WORK TO DETERMINE PLACEMENT PLAN OF CARE. PT VERBALIZES UNDERSTANDING AND DENIES FURTHER QUESTIONS AT THIS TIME. PT INFORMED TRANSPORT ESTIMATED ARRIVAL TIME IS 0930. THIS RN INQUIRES IF PATIENT HAS ANY ADDITIONAL NEEDS PRIOR TO EXITING ROOM. PT REQUESTS APPLE JUICE. THERE WAS NO APPLE JUICE PRESENT IN ED SO THIS RN CONTACTED DIETARY TO BRING UP APPLE JUICE PATIENT HAS REQUESTED.
--- NOTE | 2023-04-18 09:35 | ED.RN ---
THIS RN CALLED TO PATIENT ROOM, THIS RN ENTERS ROOM AND INQUIRES HOW THIS RN CAN HELP. PT REPORTS, I DO NOT WANT TO GO TO THIS PLACE, I READ THE ONLINE REVIEWS AND THERE ARE BUGS AND STUFF. I WANT TO GO TO [facility], SO I CALLED THERE AND THEY SAID THAT THEY WILL TAKE ME. THIS RN RE-EDUCATES PATIENT ABOUT PINK SLIP PROCESS AND REPORTS THAT PATIENT HAS BEEN ACCEPTED TO [place]. THIS RN INFORMS DRRichi ABOUT PATIENT CONCERNS AND REQUESTS THAT MD SPEAK WITH PATIENT IN REGARDS TO PLAN OF CARE. DR. EVANSS AT BEDSIDE WITH PATIENT.
== END 2023-04-18 09:38 ==
LOC: ED 10:24
PROVIDERS: Emergency Provider Emergency Medicine; Visit Provider Emergency Medicine
DX: R45.851 Suicidal ideations (principal)
CPT/HCPCS: 80048; 80307; 80320; 84703; 85025; 96372; 99284; G0480

== ENCOUNTER 2024-02-19 10:25 | Emergency (ER) | payer MEDICAID, SELFPAY ==
[2024-02-19 10:26] VITALS: BP 115/75; PULSE 70; RESP 16; TEMP 21.1; O2SAT 99
--- NOTE | 2024-02-19 10:41 | EKG12_ITS ---
Test Reason : CP Blood Pressure : */* mmHG Vent. Rate : 62 BPM Atrial Rate : 62 BPM P-R Int : 150 ms QRS Dur : 70 ms QT Int : 400 ms P-R-T Axes : 35 30 36 degrees QTcB Int : 406 ms Normal sinus rhythm Normal ECG Confirmed by Benitez Merrill ([id number]), editorial specialist KIMBERLY CONNOLLY ([id number]) on 02/22/2024 6:20:59 AM Referred By: AR Confirmed By: Benitez Merrill
--- NOTE | 2024-02-19 10:50 | RAD_ITS ---
STUDY: X-RAY CHEST REASON FOR EXAM: Female, 33 years old. Left pleuritic chest pain and respiratory symptoms. TECHNIQUE: Frontal and lateral views of the chest. COMPARISON: November 21, 2018 FINDINGS: The lungs are clear and expanded. There is no demonstrated pleural abnormality. Normal size heart. Normal mediastinum and sarah. Normal visualized pulmonary arteries. Normal visualized aortic arch and descending thoracic aorta. Normal visualized thoracic spine. Normal visualized ribs, clavicles, and shoulders. No abnormality of the visualized soft tissue structures of the upper abdomen. RAD/Chest PA and Lateral IMPRESSION: No interval change. Normal x-ray examination of the chest. Electronically Signed: Brijesh Elizalde MD at 11:15 [facility] ,
--- NOTE | 2024-02-19 11:09 | EDS_ITS ---
HPI History of Present Illness Chief Complaint: Chest Pain Detail of Chief Complaint: Left-sided chest pain with respiratory symptoms Informant: patient Onset/Context/Timing Onset: Days (Onset of symptoms 2 days ago) Activity at onset: sudden Timing: Continuous and Waxes and wanes Quality: Positive for - (Pleuritic left-sided chest pain under left breast) Location: Left Chest Current Severity: Gone Maximum Severity: Mild Worsened By: Breathing; Not Worsened By Exertion, Movement of Arm, Movement of Torso, Eating, Palpation or Coughing Relieved By: Nothing (There is no pain if patient does not breathe.) Associated Symptoms: Positive for Cough; Negative for Nausea, Vomiting, Diaphoresis, Dyspnea, Fever, Lightheadedness, Acid Reflux or Palpitations Narrative Narrative: Patient is a 33-year-old female. She does vape. She vapes cannabis. She has no history of other drug use. She denies alcohol use. There is a family history of cholelithiasis. Patient denies intolerance to greasy or fried foods. She denies history of pancreatitis. Patient went to the urgent care. Urgent care thought she needed an EKG and chest x-ray. Since that she told the nurse that the urgent care felt she needed an EKG 1 was ordered per nurse protocol. Patient denies fever, chills night sweats. She does endorse mild congestion. HEENT is otherwise unremarkable. The cough is nonproductive. She has no history of VTE. She has no risk factors for VTE. She denies leg pain, swelling discoloration. 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 PTSD (post-traumatic stress disorder) Home Medications ?Medication ?Instructions ?Recorded ?Last Taken ?Type naproxen 500 mg tablet 500 mg PO BID #14 tabs 02/19/24 Unknown Rx Allergy/AdvReac Type Severity Reaction Status Date / Time No Known Allergies Allergy Verified 02/19/24 10:25 Family History Grandmother Diabetes Hypertension Surgical History Hx of tooth extraction Social History housing: [facility] current occupational status: unemployed current occupation: [employer] Smoking Status: Current every day smoker tobacco type: e-cigarettes alcohol intake: never substance use type: other details: Medical Marijuana use (not using currently) caffeine: No seatbelt use: always do you feel safe at home: Yes additional social history: single Patient is unemployed [facility] ED Constitutional Constitutional ED: Denies chills, fever(s), subjective or sweats Eyes Eyes: Reports none ENT ENT ED: Reports rhinorrhea; Denies ear pain or sore throat Cardiovascular Cardiovascular: Reports as per HPI; Denies orthopnea or paroxysmal nocturnal dyspnea Respiratory/Chest Respiratory/Chest: Reports cough; Denies dyspnea, dyspnea on exertion, orthopnea, paroxysmal nocturnal dyspnea or sputum Gastrointestinal Gastrointestinal: Denies abdominal pain, diarrhea, nausea or vomiting Musculoskeletal Musculoskeletal: Denies arthralgias or myalgias Integumentary Denies rash Neurologic Neurologic: Denies headache(s) Hematologic/Lymphatic Hematologic/Lymphatic: Denies easy bleeding or easy bruising EXAM Physical Exam Const Vital Signs: 02/19/24 10:26 02/19/24 10:32 Temperature 70 F L Temperature Source Temporal Pulse Rate 70 Respiratory Rate 16 Respiratory Effort Normal Blood Pressure 115/75 Blood Pressure Mean 88 Pulse Ox 99 Oxygen Delivery Method Room Air Positive well nourished and obese Constitutional Narrative: Patient is a pleasant 33-year-old woman who appears no distress. BMI is greater than 30. General Appearance ED: Negative for pallor Nutritional Appearance: obese HEENT Reports TM's clear and moist mucous membranes HEENT Narrative: Posterior pharynx is normal. normocephalic and atraumatic Tympanic Membrane ED: Yes TM's clear Eyes PERRL and EOMs intact bilaterally General Eye ED: Negative for pale conjunctiva or scleral icterus Neck no lymphadenopathy, supple and no JVD Resp normal respiratory effort and clear to auscultation bilaterally Resp Narrative: Chest pain is not reproducible. Cardio regular rate, regular rhythm, S1 normal heart sound, S2 normal heart sound and no murmurs GI normal to inspection, nondistended, normoactive bowel sounds, soft to palpation, non-tender, non-distended and no masses; Negative for hepatosplenomegaly Extremity normal to inspection Extremity Narrative: There is no asymmetry, swelling, discoloration, leg vein distention, palpable cords or tenderness along the distribution of the deep venous system. Neuro oriented x3, CN's II-XII intact bilaterally and no sensory deficits noted Sensorium / Orientation: awake and alert Psych mental status grossly normal Skin no rashes or lesions noted and no wounds General Skin Exam: Negative for jaundice or pallor MDM MDM MDM Narrative Medical decision making narrative: Differential diagnosis would be pleurisy with upper story infection. Patient is PERC negative and Wells score is less than 3. Also need to consider possible pneumonia. Will obtain chest x-ray. EKG was done per nurse protocol as previously documented. History and physical neck assessment with coronary disease, aortic dissection. History and physical not consistent with pneumothorax. Radiography Chest X-Ray - ED: 2 View, Read by ED Physician (Independently reviewed interpreted by me at 1110), Normal, Heart, Lungs, Mediastinum, Bony Structures and No Acute Disease EKG Initial EKG: Attestation: I personally reviewed and interpreted this EKG as follows: Interpretation: Sinus Rhythm (Rate is 62. EKG is normal. NC interval is under 50 ms. QS duration 70 ms. QT duration 400 ms. [place] is normal.) Treatment and Re-Evaluation :: Since patient's had symptoms for 2 days and has no contraindication to NSAIDs she was prescribed Naprosyn and antibiotics are not indicated. Discharge Plan Triage Chief Complaint: Chest Pain Other Complaint: Lower Extremity Injury ED Provider: Jignesh Wolfe Dx/Rx/DC Orders Clinical Impression: Pleuritic chest pain, Acute upper respiratory infection, Adult BMI 30+ Instructions: ED Pleurisy Prescriptions: New naproxen 500 mg tablet 500 mg PO BID Qty: 14 0RF Primary Care Provider: Susan Hamilton Referrals: Susan Hamilton MD [Primary Care Provider] - 1 Week if not improving Print Language: Colombian Disposition Disposition: Home, Self Care
== END 2024-02-19 12:13 | disposition home or self-care (01) ==
LOC: ED 11:26
PROVIDERS: Emergency Provider Emergency Medicine; PCP Internal Medicine; Visit Provider Emergency Medicine
DX: R07.81 Pleurodynia (principal); J06.9 Acute upper respiratory infection, unspecified; E66.9 Obesity, unspecified; F17.210 Nicotine dependence, cigarettes, uncomplicated; R05.9 Cough, unspecified
CPT/HCPCS: 71046; 93005; 99283